=== PATIENT | male | born 1995 | race African-American/Black ===

== ENCOUNTER 2020-02-18 21:42 | Emergency (ER) | payer OTHER ==
[~2020-02-18] VITALS: Ht 175.3 cm; Wt 79.5 kg
[2020-02-18 21:45] VITALS: BP 145/86
[2020-02-18] MEDS ORDERED: LIDOCAINE W/EPINEPHRINE 1% 20ML VIAL As Ordered ONE (22:39)
[2020-02-18] MEDS ORDERED: LIDOCAINE W/EPINEPHRINE 1% 20ML VIAL SC ONE (23:00)
--- NOTE | 2020-02-19 07:42 | REP ---
REASON: Pain after trauma. FINDINGS: The compartments are symmetric and relatively well maintained. There is no acute fracture or destructive osseous lesion. Electronically Signed by Steve Edward DO 02/19/2020 11:36 A
== END 2020-02-19 00:13 | disposition home or self-care (01) ==
LOC: M ED 21:42
DX: S01.411A Laceration without foreign body of right cheek and temporomandibular area, initial encounter (principal); M25.461 Effusion, right knee; Y04.0XXA Assault by unarmed brawl or fight, initial encounter; Y92.149 Unspecified place in prison as the place of occurrence of the external cause; Y93.89 Activity, other specified; Y99.9 Unspecified external cause status